=== PATIENT | male | born 1965 | race Caucasian/White ===

== ENCOUNTER 2016-12-19 06:46 | Emergency (ER) | payer OTHER | END 2016-12-19 08:33 | disposition home or self-care (01) | LOC: ER 06:46 | DX: K59.00 Constipation, unspecified (principal); F32.9 Major depressive disorder, single episode, unspecified; Z90.49 Acquired absence of other specified parts of digestive tract | CPT/HCPCS: 36415; 96374; J1885 ==

== ENCOUNTER 2016-12-20 15:40 | Emergency (ER) | payer OTHER | END 2016-12-20 16:46 | disposition home or self-care (01) | LOC: ER 15:40 | DX: R10.9 Unspecified abdominal pain (principal); R07.81 Pleurodynia; F32.9 Major depressive disorder, single episode, unspecified; Z90.49 Acquired absence of other specified parts of digestive tract ==